=== PATIENT | female | born 1985 | race Caucasian/White ===

== ENCOUNTER 2019-10-26 10:37 | Outpatient (CLI) | payer OTHER ==
--- NOTE | 2019-10-26 13:11 | ULT ---
ULTRASOUND OBSTETRICAL COMPLETE: DATE: 10/26/2019 HISTORY: 34-year-old female for evaluation of anatomy and maternal cervix. FINDINGS: number: Babcock. lie: Cephalic. Maternal cervix: Obscured. Placenta: Anterior. No placenta previa. Amniotic fluid volume: [place]ISSETTE 15.5 cm. heart rate: 146 bpm. The following anatomy is visualized, with no evidence of anomalies: Head, lateral ventricles, cerebellum, nose and lips, spine, upper limbs, lower limbs, four chamber he art, umbilical cord, cord insertion, stomach, kidneys, and bladder. biometry: Head circumference (HC): 19.8 cm 22w 1d Biparietal diameter (BPD): 5.2 cm 22w 0d Abdominal circumference (AC): 17.2 cm 22w 2d Femur length (FL): 4.0 cm 22w 6d Average ultrasound age (AUA): 22w 3d Estimated date of delivery (FRANK): 02/26/2020 Last menstrual period (LMP): 05/22/2019. Gestational age by LMP: 22w 3d Estimated weight (EFW): 497 g +/- 73 g (1 lb. 2 oz. +/- 3 oz.) IMPRESSION: 1. Live second trimester intrauterine gestation. 2. Estimated gestational age of 22 weeks, 3 days. 3. Cephalic lie. 4. No anatomical abnormalities. 5. Maternal cervix partially obscured. Closed but unable to obtain length measurement. moise [] POS: JIN
== END 2019-10-26 10:38 | disposition home or self-care (01) ==
LOC: BICULT 10:37
PROVIDERS: ATTEND Family Medicine
DX: O09.92 Supervision of high risk pregnancy, unspecified, second trimester (principal); Z3A.22 22 weeks gestation of pregnancy
CPT/HCPCS: 76805

== ENCOUNTER 2022-01-24 10:05 | Outpatient (CLI) | payer OTHER | END 2022-01-24 10:06 | disposition home or self-care (01) | LOC: BICULT 10:05 | PROVIDERS: ATTEND Family Medicine | DX: O09.522 Supervision of elderly multigravida, second trimester (principal); Z3A.20 20 weeks gestation of pregnancy | CPT/HCPCS: 76805 ==